=== PATIENT | female | born 1935 | race Hispanic/Latino ===

== ENCOUNTER 2020-03-26 12:55 | Outpatient (RCR) | payer MEDICARE ==
[~2020-03-26 12:55] MED LIST: ASA81 MG PO; BACTRIM DS TAB1 EACH PO; CIPROFLOXACIN500 MG PO; HYDROCODON-ACE1 EAC4 PO; LANTUS; LISINOPRIL10 MG PO; LORTAB 7.51 EA PO; MOTRIN800 MG PO; PROPRANOLOL HCL10 MG PO; REZYST250 MG PO; Z.0.ACTONEL150 MG PO; Z.0.CALTRATE 600 W1 PO; Z.0.GLUCOPHAGE1000 M PO; Z.0.NEXIUM40 MG PO; Z.0.ZOLOFT100 MG PO
== END 2020-03-27 ==
LOC: PT 12:55
PROVIDERS: ATTEND Specialist
DX: M70.62 Trochanteric bursitis, left hip (principal); M70.61 Trochanteric bursitis, right hip; M47.816 Spondylosis without myelopathy or radiculopathy, lumbar region; M62.81 Muscle weakness (generalized); R26.2 Difficulty in walking, not elsewhere classified; M54.5 Low back pain

== ENCOUNTER 2020-04-20 13:00 | Outpatient (RCR) | payer MEDICARE | END 2020-04-26 | LOC: PT 13:00 | PROVIDERS: ATTEND Specialist | DX: M70.62 Trochanteric bursitis, left hip (principal); M70.61 Trochanteric bursitis, right hip; M47.816 Spondylosis without myelopathy or radiculopathy, lumbar region | CPT/HCPCS: 97139 ==

== ENCOUNTER 2020-05-14 13:58 | Outpatient (RCR) | payer MEDICARE | END 2020-05-27 | LOC: PT 13:58 | PROVIDERS: ATTEND Specialist | DX: M70.62 Trochanteric bursitis, left hip (principal); M70.61 Trochanteric bursitis, right hip; M47.816 Spondylosis without myelopathy or radiculopathy, lumbar region ==

== ENCOUNTER → 2021-10-31 | Outpatient (CLI) | payer MEDICARE | LOC: MRI 07:21 | PROVIDERS: ATTEND Family Medicine | DX: G31.84 Mild cognitive impairment of uncertain or unknown etiology (principal) | CPT/HCPCS: 70551 ==

== ENCOUNTER → 2022-09-12 | Outpatient (CLI) | payer MEDICARE | LOC: MRI 08:49 | PROVIDERS: ATTEND Family Medicine | DX: R42 Dizziness and giddiness (principal) | CPT/HCPCS: 70551; 93306; 93880 ==